=== PATIENT | female | born 1995 | race Caucasian/White ===

== ENCOUNTER 2017-02-26 15:19 | Emergency (ER) | payer MEDICAID ==
[2017-02-26 15:49] VITALS: BP 109/73; PULSE 93; RESP 16; TEMP 98.2; O2SAT 95
[2017-02-26] MEDS ORDERED: IBUPROFEN 600 MG TAB PO ONE (15:51)
[2017-02-26] MEDS ORDERED: ACETAMINOPHEN 325 MG TAB PO ONE (15:51)
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
== END 2017-02-26 17:29 | disposition home or self-care (01) ==
LOC: CED 15:19
DX: S09.90XA Unspecified injury of head, initial encounter (principal); S60.012A Contusion of left thumb without damage to nail, initial encounter; S40.022A Contusion of left upper arm, initial encounter; F17.200 Nicotine dependence, unspecified, uncomplicated; Y04.0XXA Assault by unarmed brawl or fight, initial encounter

== ENCOUNTER 2017-06-07 18:31 | Emergency (ER) | payer MEDICAID ==
[2017-06-07 18:47] VITALS: O2SAT 97
[2017-06-07] MEDS ORDERED: DEXAMETHASONE 4 MG/ML VIAL IVP ONE (18:48)
[2017-06-07] MEDS ORDERED: METOCLOPRAMIDE 10 MG/2 ML VIAL IVP ONE (18:48)
[2017-06-07] MEDS ORDERED: NS 1,000 ML IV ONE (18:48)
[2017-06-07] MEDS ORDERED: KETOROLAC 15 MG/1 ML SDV IVP/IM ONE (18:48)
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
[2017-06-07] MEDS ORDERED: DEXAMETHASONE 10 MG/ML VIAL ONE (19:05)
[2017-06-07] MEDS ORDERED: METOCLOPRAMIDE 10 MG/2 ML VIAL ONE (19:05)
[2017-06-07] MEDS ORDERED: KETOROLAC 15 MG/1 ML SDV ONE (19:06)
[2017-06-07 20:21] VITALS: BP 118/67; PULSE 66; RESP 16; TEMP 98.4
== END 2017-06-07 20:15 | disposition home or self-care (01) ==
LOC: CED 18:31
DX: R51 Headache (principal); J45.909 Unspecified asthma, uncomplicated; F17.200 Nicotine dependence, unspecified, uncomplicated
CPT/HCPCS: 96374; J1100; J1885; J2765

== ENCOUNTER 2018-09-03 20:24 | Emergency (ER) | payer MEDICAID, OTHER ==
--- NOTE | 2018-09-03 20:36 | EDPHY ---
H & P Smoking Status: Heavy smoker Time Seen by Provider: 09/03/18 20:35 HPI/ROS: Chief complaint. Chest and rib pain HPI. 23-year-old female with left chest discomfort that began at 4:00 p.m.. It began upper chest and now is under her left breast. Somewhat hurts to push on. Hurts to take a deep breath and she feels short of breath. Denies fall or injury. No fever cough. No abdominal pain vomiting or diarrhea. She has been having charley horses in her left calf for about 1 week but no swelling. Pain goes away later in the day with ambulation. She recently came off control pills. ROS 10 systems were reviewed and negative with the exception of the elements mentioned in the history of present illness (Lauro Swain) Past Medical/Surgical History: Asthma (Lauro Swain) Social History: Single, nonsmoker, no alcohol (Lauro Swain) Physical Exam: General Appearance: Alert well-developed female mild distress vital signs are stable Eyes: Pupils equal and round no pallor or injection. ENT, Mouth: Mucous membranes are moist. Respiratory: There are no retractions, lungs are clear to auscultation. Cardiovascular: Regular rate and rhythm. Gastrointestinal: Abdomen is soft and nontender, no masses, bowel sounds normal. Neurological: Awake and alert, sensory and motor exams grossly normal. Skin: Warm and dry, no rashes. Musculoskeletal: Neck is supple nontender. Chest wall somewhat tender to palpation in the area under her left breast Extremities symmetrical, full range of motion. Psychiatric: Patient is oriented X 3, there is no agitation. (Lauro Swain) Constitutional: Initial Vital Signs Temperature (C) 36.9 C 09/03/18 20:29 Heart Rate 86 09/03/18 20:29 Respiratory Rate 16 09/03/18 20:29 Blood Pressure 114/71 09/03/18 20:29 O2 Sat (%) 98 09/03/18 20:29 O2 Delivery Mode Room Air Allergies/Adverse Reactions: metronidazole [From Flagyl] Allergy (Verified 06/07/17 19:04) Home Medications: Medication Instructions Recorded NK [No Known Home Meds] 06/07/17 Medical Decision Making - Diagnostics EKG Interpretation: EKG interpreted by me shows normal sinus rhythm normal interval and axis. QRS is normal. There is mild sinus arrhythmia. No significant ST elevation or depression. Rate 71 (Lauro Swain) Procedures: IV normal saline (Lauro Swain) ED Course/Re-evaluation: This patient was seen and examined by me. She presents with pleuritic chest pain. Stat EKG reveals no evidence of ischemia or dysrhythmia. Chest x-ray is unremarkable. Perc score is 0 and I do not suspect acute pulmonary embolism. Clinical scenario most consistent with musculoskeletal etiology of pain. She has already been given Toradol IV. Ibuprofen instructions given. Warning signs discussed. (Bita Hooker) Patient remained stable on re-evaluation (Lauro Swain) Differential Diagnosis: I have considered pneumonia, chest wall pain pulmonary embolus, acute coronary syndrome (Lauro Swain) Care Turn Over: care to Dr. Hooker at 2100 (Lauro Swain) - Data Points Laboratory Results: Laboratory Results 09/03/18 20:52 09/03/18 20:52 Medications Given: Discontinued Medications Ketorolac Tromethamine (Toradol) 30 mg IVP EDNOW ONE Stop: 09/03/18 20:49 Last Admin: 09/03/18 20:56 Dose: 30 mg Point of Care Test Results: Chemistry 09/03/18 20:54 POC Troponin I 0.00 ng/mL ng/mL (0.00-0.08) Departure - Departure Disposition: Home, Routine, Self-Care Clinical Impression: Chest wall pain Condition: Good Instructions: Chest Pain (ED) Additional Instructions: Ibuprofen 600 mg every 6 hr as needed for discomfort Return for worsening breathing or chest discomfort Referrals: SCOTTIE CUNHA [Other] - 2-3 days, if not improved
[2018-09-03] MEDS ORDERED: KETOROLAC 30 MG/1 ML SDV IVP ONE (20:48)
[2018-09-03 21:02] LABS: PLATELET COUNT 308 10^3/uL (150-400)
--- NOTE | 2018-09-03 21:09 | CPEKG ---
Test Reason : OPEN Blood Pressure : / mmHG Vent. Rate : 071 BPM Atrial Rate : 066 BPM P-R Int : 139 ms QRS Dur : 086 ms QT Int : 382 ms P-R-T Axes : 050 010 007 degrees QTc Int : 416 ms Sinus arrhythmia Confirmed by Lauro Swain ([id number]) on 09/03/2018 9:09:36 PM Referred By: Confirmed By:Lauro Swain
[2018-09-03 22:25] VITALS: BP 117/56
== END 2018-09-03 22:24 | disposition home or self-care (01) ==
DX: R07.89 Other chest pain (principal); R06.00 Dyspnea, unspecified; M62.831 Muscle spasm of calf
CPT/HCPCS: 84484-ER; 96374; J1885